=== PATIENT | female | born 1985 | race Caucasian/White ===

== ENCOUNTER 2017-07-29 17:44 | Emergency (ER) | payer MEDICAID ==
[~2017-07-29] VITALS: Ht 157.5 cm; Wt 75.0 kg
[~2017-07-29 17:44] MED LIST: FERR325C PO; PREN1TAB62 PO
[2017-07-29 17:47] VITALS: Ht 157.5 cm; Wt 75.0 kg
[2017-07-29 19:07] LABS: BASOPHILS % 0.4 % (0.0-2.0); EOSINOPHILS # 0.2 10^3/ul (0.0-0.5); HEMOGLOBIN 13.2 g/dl (12.0-16.0); LYMPHOCYTES # 3.7 10^3/ul (0.8-2.9); MEAN CORPUSCULAR VOLUME 84.7 fl (82.0-101.0); MEAN PLATELET VOLUME 8.7 fl (7.4-10.4); MONOCYTE # 0.4 10^3/ul (0.3-0.9); MONOCYTES % 3.8 % (0.0-11.0); NEUTROPHIL # 6.5 10^3/ul (1.6-7.5); NEUTROPHILS % 59.6 % (39.0-77.0); PLATELET COUNT 363 10^3/UL (140-415); RED BLOOD COUNT 4.72 10^6/ul (4.20-5.40); RED CELL DISTRIBUTION WIDTH 11.6 % (11.5-14.5)
--- NOTE | 2017-07-29 19:19 | RADRPT ---
PROCEDURE: XR Chest. CLINICAL INDICATION: chest pain TECHNIQUE: Single frontal view of the chest was obtained COMPARISON: None FINDINGS: The heart and mediastinum are within normal limits. There is a right midlung calcified granuloma. The lungs are otherwise clear. There is no pleural effusion or pneumothorax. RPTAT: AA IMPRESSION: No acute disease. Right lung calcified granuloma. .Ruel Cardozo MD, MD Date Time Electronically viewed and signed by .Ruel Cardozo MD, on 07/29/2017 19:18 .S/
[2017-07-29 19:32] LABS: ANION GAP 15 (8-16); BLOOD UREA NITROGEN 11 mg/dl (7-20); CALCIUM 9.6 mg/dl (8.4-10.2); CARBON DIOXIDE 28 mmol/L (21-31); CHLORIDE 102 mmol/L (97-110); CREATININE 0.77 mg/dl (0.44-1.00); GLUCOSE 92 mg/dl (70-220); POTASSIUM 4.2 mmol/L (3.5-5.1); SODIUM 141 mmol/L (135-144)
--- NOTE | 2017-07-29 19:33 | ERD ---
ER Documentation Chief Complaint Date/Time DATE: 07/29/17 TIME: 19:11 Chief Complaint cp, tyson, nausea, tingling left arm x2 days HPI 32 year old female presents here in the ER for complaints of headache, chest pain, numbness and tingling in the left arm for 2 days now, states she states that she has a lot of stress right now, has on and off palpitations, patient described the pain as cramping,4/10 scale, sharp pain, 6/10 scale, Now better worse with anything. Patient also started having on and off headache, throbbing pain, 4/10 scale, not better are worse with anything. Patient had nausea and 2 episodes of vomiting. Patient does not have any blood in his or black stool. Patient did abdominal blood in the vomit. Patient denies any abdominal pain. Patient did not take any medication stop and symptoms. ROS All systems reviewed and are negative except as per history of present illness. Medications Home Meds Reported Medications Albuterol Sulfate* (Proair HFA*) Unknown Strength Hfa.aer.ad, INH Q6, #1 INHALER 07/29/17 Ferrous Sulfate (Iron) 325 Mg Capsr, 325 MG PO 04/16/15 Vit-Iron Fumarate-FA ( Vitamin Tablet) 1 Each Tablet, 1 TAB PO DAILY, TAB 04/16/15 Allergies Allergies: Coded Allergies: No Known Allergy (Unverified , 04/16/15) PMhx/Soc Anesthesia Reaction: No Hx Respiratory Disorders: Yes (ASTHMA) Hx Cardiac Disorders: No Hx Psychiatric Problems: No Hx Miscellaneous Medical Probl: Yes (hypercholesteronemia) Hx Alcohol Use: No Hx Substance Use: No Hx Tobacco Use: No FmHx Family History: other (dyslipidemia), No coronary disease, No diabetes Physical Exam Vitals Vital Signs Date Time Temp Pulse Resp B/P Pulse Ox O2 Delivery O2 Flow Rate FiO2 07/29/17 17:47 97.8 82 18 129/82 100 Physical Exam GENERAL: The patient is well developed and appropriate for usual state of health, in no apparent distress. CHEST: Clear to auscultation bilaterally. There are no rales, wheezes or rhonchi. HEART: Regular rate and rhythm. No murmurs, clicks, rubs or gallops. No S3 or S4. ABDOMEN: Soft, nontender and nondistended. Good bowel sounds. No rebound or guarding. No gross peritonitis. No gross organomegaly or masses. No Baker sign or McBurney point tenderness. BACK: No midline or flank tenderness. EXTREMITIES: Equal pulses bilaterally. There is no peripheral clubbing, cyanosis or edema. No focal swelling or erythema. Full range of motion. Grossly neurovascularly intact. NEURO: Alert and oriented. Cranial nerves 2-12 intact. Motor strength in all 4 extremities with 5/5 strength. Sensation grossly intact. Normal speech and gait. SKIN: There is no apparent rash or petechia. The skin is warm and dry. HEMATOLOGIC AND LYMPHATIC: There is no evidence of excessive bruising or lymphedema. No gross cervical, axillary, or inguinal lymphadenopathy. Result Diagram: 07/29/17190007/29/171900 Results 24 hrs Laboratory Tests Test 07/29/17 19:01 White Blood Count 11.010^3/ul Red Blood Count 4.7210^6/ul Hemoglobin 13.2g/dl Hematocrit 40.0% Mean Corpuscular Volume 84.7fl Mean Corpuscular Hemoglobin 28.0pg Mean Corpuscular Hemoglobin Concent 33.0g/dl Red Cell Distribution Width 11.6% Platelet Count 25962^3/UL Mean Platelet Volume 8.7fl Neutrophils % 59.6% Lymphocytes % 34.0% Monocytes % 3.8% Eosinophils % 2.0% Basophils % 0.4% Nucleated Red Blood Cells % 0.0/100WBC Neutrophils # 6.510^3/ul Lymphocytes # 3.710^3/ul Monocytes # 0.410^3/ul Eosinophils # 0.210^3/ul Basophils # 0.010^3/ul Nucleated Red Blood Cells # 0.010^3/ul Sodium Level 141mmol/L Potassium Level 4.2mmol/L Chloride Level 102mmol/L Carbon Dioxide Level 28mmol/L Anion Gap 15 Blood Urea Nitrogen 11mg/dl Creatinine 0.77mg/dl Glucose Level 92mg/dl Calcium Level 9.6mg/dl Troponin I < 0.012ng/ml PROCEDURE: XR Chest. CLINICAL INDICATION: chest pain TECHNIQUE: Single frontal view of the chest was obtained COMPARISON: None FINDINGS: The heart and mediastinum are within normal limits. There is a right midlung calcified granuloma. The lungs are otherwise clear. There is no pleural effusion or pneumothorax. RPTAT: AA IMPRESSION: No acute disease. Right lung calcified granuloma. .Ruel Cardozo MD, Date Time Electronically viewed and signed by .Ruel Cardozo MD, on 07/29/2017 19: 18 .S/ CC: SEVERINO JEAN NP EKG was done, read by me and is normal sinus rhythm at a rate of 70, normal axis , there is no ST changes or changes in the EKG that indicates any cardiac emergencies at this time. Patient's EKG was also reviewed by Dr. Flanagan. Impression: no acute findings on EKG Procedures/MDM Medical Decision Making:Pt symptoms of chest pain nonspecific at this time, condition is related, can be slightly. There is low suspicion for cardiopulmonary emergencies at this time. Patient has low risk factors. EKG is normal, there is no changes in the EKG that indicates cardiac emergencies. Chest X-ray does not show cardiopulmonary emergencies at this time. There is low suspicion for aortic aneurysm, myocardial infarction, pneumothorax, pleural effusion, pulmonary embolism, or any other cardiopulmonary emergencies at this time. Cardiac markers are normal. She was advised to follow with primary care doctor in 1-2 days, possible cardiology evaluation for stress test, possible Holter monitoring, patient was advised to return to emergency department for any worsening symptoms. Dispostion: Home. Stable Disclaimer: Inadvertent spelling and grammatical errors are likely due to EHR/ dictation software use and do not reflect on the overall quality of patient care. Also, please note that the electronic time recorded on this note does not necessarily reflect the actual time of the patient encounter. Departure Diagnosis: Primary Impression: Atypical chest pain Condition: Stable Patient Instructions: Chest Pain, Uncertain Cause Additional Instructions: She was advised to follow with primary care doctor in 1-2 days, possible cardiology evaluation for stress test, possible Holter monitoring, patient was advised to return to emergency department for any worsening symptoms. SEVERINO JEAN NP Jul 29, 2017 19:32
[2017-07-29] MEDS ORDERED: ALBU8.5H3 INH (19:46)
[2017-07-29 19:53] LABS: TROPONIN-I < 0.012 ng/ml (0.00-0.12)
[2017-07-29 21:00] VITALS: BP 125/76; PULSE 63; RESP 16
== END 2017-07-29 21:01 | disposition home or self-care (01) ==
LOC: FTE 17:44
DX: R07.89 Other chest pain (principal); J45.909 Unspecified asthma, uncomplicated
CPT/HCPCS: 71010; 80048; 84484; 85025; 93005; Z7502